=== PATIENT | male | born 1930 | race Caucasian/White ===

== ENCOUNTER 2016-11-18 19:26 | Emergency (ER) | payer MEDICARE, BC ==
[2016-11-18 20:06] LABS: #Lymphocytes 0.9 thou/uL (1.20-3.40); #Monocytes 0.7 thou/uL (0.11-0.59); #Neutrophils 14.2 thou/uL (1.40-6.50); %Basophils 0.2 % (0.0-1.0); %Eosinophils 0.1 % (0.0-10.0); %Lymphocytes 5.9 % (21.0-51.0); %Monocytes 4.6 % (0.0-10.0); %Neutrophils 89.2 % (42.0-75.0); Hemoglobin 11.7 g/dL (14.0-18.0); Mean Corpuscular HGB CONC 33.4 g/dL (32.0-36.0); Mean Corpuscular Hemoglobin 30.6 pg (27.0-31.0); Mean Corpuscular Volume 91.7 fl (80.0-94.0); Mean Platelet Volume 7.2 fL (7.4-10.4); Platelet Count 255 thou/uL (130-400); RBC Distribution Width 11.9 % (11.5-14.5); Red Blood Cell (RBC) Count 3.81 mill/uL (4.70-6.10); White Blood Cell (WBC) Count 15.9 thou/uL (4.8-10.8)
--- NOTE | 2016-11-18 20:25 | RAD ---
LEFT HIP TWO VIEWS: 11/18/16 HISTORY: Left hip pain. FINDINGS/IMPRESSION: There is a fracture involving the neck of the left femur. POS: CHEMO
[2016-11-18 20:28] LABS: Bilirubin Negative (Negative); Blood, Urine Negative (Negative); Clarity Clear (Clear); Glucose, Urine (Dipstick) Negative (Negative); Leukocyte Negative (Negative); Nitrite Negative (Negative); Protein, Urine (Dipstick) Trace mg/dL (Neg-Trace); Urobilinogen 0.2 mg/dL (0.2-1.0); pH, Urine 5.5 (5.0-9.0)
[2016-11-18 20:30] LABS: CKMB 3.6 ng/mL (0-6.6); Troponin I 0.024 ng/mL (< 0.028)
--- NOTE | 2016-11-18 20:33 | RAD ---
LEFT FEMUR TWO VIEWS: 11/18/16 HISTORY: Left hip pain and shortening. FINDINGS/IMPRESSION: There is a fracture involving the neck of the left femur. POS: CHEMO
[2016-11-18 20:36] LABS: ALT (SGPT) 22 U/L (8-55); AST (SGOT) 25 U/L (5-34); Albumin 4.2 g/dL (3.4-4.8); Alkaline Phosphatase 92 U/L (40-150); Anion Gap 17 mmol/L (10-20); BUN (Urea Nitrogen) 35 mg/dL (8.4-25.7); Bilirubin, Total 0.5 mg/dL (0.2-1.2); CK (CPK) 196 U/L (30-200); Calc. Creatinine Clearance 0 mL/min (70-130); Calcium 9.3 mg/dL (7.8-10.44); Carbon Dioxide 20 mmol/L (23-31); Chloride 107 mmol/L (98-107); Estimated GFR-MDRD 43; Globulin 2.8 g/dL (2.4-3.5); Glucose 144 mg/dL (83-110); Potassium 3.5 mmol/L (3.5-5.1); Sodium 140 mmol/L (136-145)
[2016-11-18] MEDS ORDERED: Fentanyl 100 MCG/2 ML VIAL ONE (20:45)
== END 2016-11-18 21:11 | disposition short-term general hospital (02) ==
LOC: NAV ERS 19:26
DX: M84.452A Pathological fracture, left femur, initial encounter for fracture (principal); I11.0 Hypertensive heart disease with heart failure; I50.9 Heart failure, unspecified; I48.91 Unspecified atrial fibrillation; E78.5 Hyperlipidemia, unspecified; G30.9 Alzheimer's disease, unspecified; F02.80 Dementia in other diseases classified elsewhere, unspecified severity, without behavioral disturbance, psychotic disturbance, mood disturbance, and anxiety; Z79.82 Long term (current) use of aspirin; Z79.899 Other long term (current) drug therapy; Z87.891 Personal history of nicotine dependence
CPT/HCPCS: 36415; 51702; 80053; 81003; 82550; 82553; 84484; 85025; 93005; 96374; G0390; J3010